=== PATIENT | female | born 1970 | race Two or more races ===

== ENCOUNTER 2018-10-13 15:39 | Emergency (ER) | payer BC, MEDICAID ==
[~2018-10-13] VITALS: Ht 165.1 cm; Wt 71.2 kg
--- NOTE | 2018-10-13 16:11 | NUR ---
PT A/OX4, PRESENTS TO THE ER C/O SKIN RASH APPROXIMATELY 4 CM IN DIAMETER ON L [address]. SKIN IRRITATION RED, BUT NOT EDEMATOUS. VSS. PT DENIES PAIN, C/P, SOB, N/V/D, DIZZINESS, HEADACHE.
--- NOTE | 2018-10-13 16:14 | NUR ---
EMMA BELTRAN AT BEDSIDE FOR MSE.
--- NOTE | 2018-10-13 16:27 | NUR ---
Patient discharged to home in stable conditon. Written and verbal after care instructions given. Patient verbalizes understanding of instructions.
[2018-10-13 16:28] VITALS: BP 111/68
== END 2018-10-13 16:29 | disposition home or self-care (01) ==
LOC: ER 15:43
DX: L03.116 Cellulitis of left lower limb (principal); S80.812A Abrasion, left lower leg, initial encounter; Z88.6 Allergy status to analgesic agent; X58.XXXA Exposure to other specified factors, initial encounter; Y93.89 Activity, other specified; Y92.89 Other specified places as the place of occurrence of the external cause; Y99.8 Other external cause status
CPT/HCPCS: A4663